=== PATIENT | male | born 1940 | race Caucasian/White ===

== ENCOUNTER 2019-11-04 06:44 | Day surgery (SDC) | payer MEDICARE ==
[2019-11-04] MEDS ORDERED: Lactated Ringers 1,000 ML IV ONE (06:55)
[2019-11-04] MEDS ORDERED: NON-FORMULARY ITEM OP ONE (07:00)
[2019-11-04] MEDS ORDERED: Lactated Ringers 1,000 ML IV SCH (07:00)
[2019-11-04] MEDS ORDERED: TETRACAINE 0.5% STERI-UNIT SOL OP ONE ×2 (07:00)
[2019-11-04] MEDS ORDERED: Ak-Dilate OPHTHALMIC*** 1.065 ML, Cyclogyl 1% OPHTH SOL 5 ML 1.065 ML, GATIFLOXACIN 0.5... OP ONE ×4 (07:00)
[2019-11-04] MEDS ORDERED: Zofran 4 MG/2 ML VIAL IV PRN (09:00)
[2019-11-04] MEDS ORDERED: ACETAZOLAMIDE 250 MG TABLET PO ONE (09:00)
[2019-11-04] MEDS ORDERED: DIPRIVAN 200 MG/20 ML IV ONE (09:58)
[2019-11-04] MEDS ORDERED: LIDOCAINE HCL 1% AMPUL 5 ML IJ ONE (10:00)
[2019-11-04] MEDS ORDERED: BETADINE 5% OPHTHALMIC 30 ML OP ONE (10:00)
[2019-11-04] MEDS ORDERED: BSS 500 ML, Fortaz/Tazicef 1 GM** 0.2 G IO ONE ×2 (10:00)
[2019-11-04] MEDS ORDERED: Epinephrine Preservative Free 1 MG/ML INTRAOP ONE (10:00)
[2019-11-04 11:16] VITALS: BP 172/83; PULSE 68; O2SAT 97
--- NOTE | 2019-11-04 11:53 | OP ---
DATE/TIME OF OPERATION: 11/04/2019 0959 TIME DICTATED: 1130 PREOPERATIVE DIAGNOSIS: Senile cataract of left eye. POSTOPERATIVE DIAGNOSIS: Senile cataract of left eye. SURGEON: Dania Jacobsen MD STOCK TRACER: None. OPERATION: Cataract extraction of left eye with an intraocular lens implant. STANDARD __X__ COMPLEX ____ ANESTHESIA: MAC. ___X__ Monitored anesthesia care in combination with topical and intra-cameral anesthesia (because of the established specific risk of reflux, arrhythmias, or an anxiety attack associated with ocular manipulation as well as difficulty of the rouge mixer to manage such potentially catastrophic events while simultaneously attempting to complete the surgical procedure, it was deemed necessary for the patient's safety to have an anesthesiologist or a nurse dust collector operator present during the procedure whenever possible. The anesthesiologist or the nurse dust collector operator was utilized to monitor and regulate the intravenous sedation of the patient, so the patient was cooperative, relaxed, and comfortable). Topical anesthesia using Tetracaine eye drops together with intra cameral anesthesia using Lidocaine 1% MPF. The nurse was utilized to monitor the patient. ANESTHESIA PROVIDER: Hang Espino CRNA. COMPLICATIONS: None. BLOOD LOSS: None. INDICATIONS: The patient is undergoing cataract surgery in the hopes of eliminating the visual complaints and difficulty. PROCEDURE: After arriving at the facility's outpatient surgery area, an IV was started; the patient was given 5 mg of p.o. Versed. (If an anesthesia provider was not monitoring the patient) The patient was then given topical anesthetic Tetracaine eye drops. A cotton pellet was soaked into a solution of a combination of Zymaxid 0.5%, Andrew-Synephrine 2.5% and Ocufen (other drops might have been substituted referenced in the patient's record). The pellet was inserted by the RN into the lower conjunctival cul-de-sac with a sterile forceps and left for 20 minutes. The pellet was then removed by the RN with a sterile forceps before taking the patient to the operating room. The preoperative area nurse identified the patient and marked the correct eye to be operated on. I identified the correct eye to be operated on and marked it appropriately in the outpatient surgery area. The patient was then taken into the operating room. Tetracaine eye drops were installed again in the correct eye. The eyelids and the lashes and the lid margins were scrubbed with Betadine solution. One drop of the diluted Betadine solution was placed in the conjunctival cul-de-sac for 45 seconds and then was irrigated. A drop of Tetracaine Gel was placed in the conjunctival cul-de-sac. The patient's forehead was taped to secure it during the procedure. The patient was monitored. The patient was then draped in the usual way for this procedure. An eye speculum was used to separate the eyelids. The eye was then fixated and a temporal 2.5 mm incision was made in the clear cornea temporally at the limbus. Through the incision, 0.25 cc of 1% non-preserved lidocaine was injected into the anterior chamber for intracameral anesthesia. The anterior chamber was then filled with viscoelastic. The pupil was small. I felt that it would be safer to mechanically dilate the pupil. A Malyugin ring was used at this point which dilated the pupil. That was removed at the end of the procedure prior to aspiration of the viscoelastic from the anterior chamber and posterior to the intraocular lens implant. The cataract had a great amount of cortical changes. That rendered seeing the anterior capsule difficult for a safe performance of an anterior capsulotomy. I injected an air bubble into the anterior chamber. I then injected 1 ML of vision blue solution into the anterior chamber. The vision blue solution was irrigated from the anterior chamber after 30 seconds. The anterior capsule was stained which facilitated performing the anterior capsulotomy safely. After that was completed, a cystotome was introduced into the anterior chamber and a round anterior capsulotomy was performed. The capsule was removed by a forceps. Hydrodissection was next carried utilizing a 25-gauge cannula and balanced salt solution to delineate the cortical material from the capsule and the nucleus from the cortical material. The nucleus was rotated freely into the capsular bag with no difficulty. The phaco tip of the [employer] Phacoemulsifier was introduced into the anterior chamber and two grooves were made into the nucleus 90 degrees apart. Using two spatulas resulted into the nucleus being fractured into four quadrants. The phaco tip was then used to remove each quadrant of the nucleus. Viscoelastic was used during this process to protect the corneal endothelium. Once the entire nucleus was removed, the phaco tip then was removed and the irrigation tip was introduced into the eye and the cortex was removed. The posterior capsule was polished. It was noticed that there was a tear into the posterior capsule with few vitreous strands into the pupil plan. An anterior vitrectomy was performed. A 20.00 diopter, SN60WF, posterior chamber lens implant, was inspected and found to be grossly normal. The implant was inserted into the implant injector cartridge; Viscoelastic again was introduced into the anterior chamber, which filled the capsular bag. The implant injector's cartridge tip was placed at the limbal wound and the posterior chamber implant was released into the capsular bag and rotated appropriately. The implant was found to be into the capsular bag and it was centered. 0.2 ml of Tri-Moxi was introduced via 27 gauge cannula into the vitreous cavity through the ciliary processes. Viscoelastic was aspirated from the anterior chamber and posterior to the intraocular lens implant from the capsular bag using the irrigating tip. The anterior chamber was irrigated and filled with 5 cc antibiotic solution (500 cc of BSS plus 2 ml of Fortaz 100 mg/ml) ( if patient was not allergic to the medication). The lips of the corneal incision were hydrated using BSS solution. The anterior chamber was checked and found to be water tight. ___X__ One drop each of antibiotic, steroid and NSAID drops (refer to chart for drops used) were placed in the conjunctival cul-de-sac of the operated eye. Patient tolerated the procedure quite well and left the operating room in satisfactory condition. DISCHARGE SUMMARY: The patient was released in stable condition. The patient and those with the patient were given an instruction sheet as of how to care for the eye after surgery as well as counseling on any abnormal laboratory studies by the postoperative RN. The patient was also given an appointment card for follow-up in the office and is to call immediately for any difficulties including but not limited to pain in the eye, decreased vision, discharge from the eye, headache and or fever. DISCHARGE DIAGNOSIS: Pseudophakia of left eye.
== END 2019-11-04 11:20 | disposition home or self-care (01) ==
LOC: SDC 06:44
PROVIDERS: ATTEND Ophthalmology
DX: H25.812 Combined forms of age-related cataract, left eye (principal); E11.9 Type 2 diabetes mellitus without complications; I10 Essential (primary) hypertension; E78.00 Pure hypercholesterolemia, unspecified; M10.9 Gout, unspecified; K21.9 Gastro-esophageal reflux disease without esophagitis; Z79.899 Other long term (current) drug therapy
CPT/HCPCS: 82962; 99100; C1780; J0171; J2704; A9270-GY

== ENCOUNTER 2019-12-09 08:22 | Day surgery (SDC) | payer MEDICARE ==
[~2019-12-09 08:22] MED LIST: Ak-Dilate OPHTHALMIC*** 1.065 ML, Cyclogyl 1% OPHTH SOL 5 ML 1.065 ML, GATIFLOXACIN 0.5... OP ONE; Lactated Ringers 1,000 ML IV SCH; NON-FORMULARY ITEM OP ONE; TETRACAINE 0.5% STERI-UNIT SOL OP ONE
[2019-12-09] MEDS ORDERED: Lactated Ringers 1,000 ML IV ONE (08:27)
[2019-12-09] MEDS ORDERED: Zofran 4 MG/2 ML VIAL IV PRN (09:00)
[2019-12-09] MEDS ORDERED: ACETAZOLAMIDE 250 MG TABLET PO ONE (09:00)
[2019-12-09] MEDS ORDERED: LIDOCAINE HCL 1% AMPUL 5 ML IJ ONE (10:00)
[2019-12-09] MEDS ORDERED: BSS 500 ML, Fortaz/Tazicef 1 GM** 0.2 G IO ONE ×2 (10:00)
[2019-12-09] MEDS ORDERED: Epinephrine Preservative Free 1 MG/ML INTRAOP ONE (10:00)
[2019-12-09] MEDS ORDERED: BETADINE 5% OPHTHALMIC 30 ML OP ONE (10:00)
[2019-12-09] MEDS ORDERED: DIPRIVAN 200 MG/20 ML IV ONE ×2 (11:19→11:25)
[2019-12-09 12:34] VITALS: O2SAT 97
[2019-12-09 13:00] VITALS: BP 168/74; PULSE 61
--- NOTE | 2019-12-09 13:49 | OP ---
DATE/TIME OF OPERATION: 12/09/2019 1119 TIME DICTATED: 1256 PREOPERATIVE DIAGNOSIS: Senile cataract of right eye. POSTOPERATIVE DIAGNOSIS: Senile cataract of right eye. SURGEON: Dania Jacobsen MD MANAGER PMO: None. OPERATION: Cataract extraction of right eye with an intraocular lens implant. STANDARD __X__ COMPLEX ANESTHESIA: MAC. ___X___ Monitored anesthesia care in combination with topical and intra-cameral anesthesia (because of the established specific risk of reflux, arrhythmias, or an anxiety attack associated with ocular manipulation as well as difficulty of the furniture designer to manage such potentially catastrophic events while simultaneously attempting to complete the surgical procedure, it was deemed necessary for the patient's safety to have an anesthesiologist or a nurse jet wiper present during the procedure whenever possible. The anesthesiologist or the nurse jet wiper was utilized to monitor and regulate the intravenous sedation of the patient, so the patient was cooperative, relaxed, and comfortable). Topical anesthesia using Tetracaine eye drops together with intra cameral anesthesia using Lidocaine 1% MPF. The nurse was utilized to monitor the patient. ANESTHESIA PROVIDER: Hang Espino CRNA. COMPLICATIONS: None. BLOOD LOSS: None. INDICATIONS: The patient is undergoing cataract surgery in the hopes of eliminating the visual complaints and difficulty. PROCEDURE: After arriving at the facility's outpatient surgery area, an IV was started; the patient was given 5 mg of p.o. Versed. (If an anesthesia provider was not monitoring the patient) The patient was then given topical anesthetic Tetracaine eye drops. A cotton pellet was soaked into a solution of a combination of Zymaxid 0.5%, Andrew-Synephrine 2.5% and Ocufen (other drops might have been substituted referenced in the patient's record). The pellet was inserted by the RN into the lower conjunctival cul-de-sac with a sterile forceps and left for 20 minutes. The pellet was then removed by the RN with a sterile forceps before taking the patient to the operating room. The preoperative area nurse identified the patient and marked the correct eye to be operated on. I identified the correct eye to be operated on and marked it appropriately in the outpatient surgery area. The patient was then taken into the operating room. Tetracaine eye drops were installed again in the correct eye. The eyelids and the lashes and the lid margins were scrubbed with Betadine solution. One drop of the diluted Betadine solution was placed in the conjunctival cul-de-sac for 45 seconds and then was irrigated. A drop of Tetracaine Gel was placed in the conjunctival cul-de-sac. The patient's forehead was taped to secure it during the procedure. The patient was monitored. The patient was then draped in the usual way for this procedure. An eye speculum was used to separate the eyelids. The eye was then fixated and a temporal 2.5 mm incision was made in the clear cornea temporally at the limbus. Through the incision, 0.25 cc of 1% non-preserved lidocaine was injected into the anterior chamber for intracameral anesthesia. The anterior chamber was then filled with viscoelastic. The pupil was small. I felt that it would be safer to mechanically dilate the pupil. A Malyugin ring was used at this point which dilated the pupil. That was removed at the end of the procedure prior to aspiration of the viscoelastic from the anterior chamber and posterior to the intraocular lens implant. The cataract had a great amount of cortical changes. That rendered seeing the anterior capsule difficult for a safe performance of an anterior capsulotomy. I injected an air bubble into the anterior chamber. I then injected 1 ML of vision blue solution into the anterior chamber. The vision blue solution was irrigated from the anterior chamber after 30 seconds. The anterior capsule was stained which facilitated performing the anterior capsulotomy safely. After that was completed, a cystotome was introduced into the anterior chamber and a round anterior capsulotomy was performed. The capsule was removed by a forceps. Hydrodissection was next carried utilizing a 25-gauge cannula and balanced salt solution to delineate the cortical material from the capsule and the nucleus from the cortical material. The nucleus was rotated freely into the capsular bag with no difficulty. The phaco tip of the [employer] Phacoemulsifier was introduced into the anterior chamber and two grooves were made into the nucleus 90 degrees apart. Using two spatulas resulted into the nucleus being fractured into four quadrants. The phaco tip was then used to remove each quadrant of the nucleus. Viscoelastic was used during this process to protect the corneal endothelium. Once the entire nucleus was removed, the phaco tip then was removed and the irrigation tip was introduced into the eye and the cortex was removed. The posterior capsule was polished. It was noticed that there was a tear into the posterior capsule with few vitreous strands into the pupil plan. An anterior vitrectomy was performed. A 20.00 diopter, SN60WF, posterior chamber lens implant, was inspected and found to be grossly normal. The implant was inserted into the implant injector cartridge; Viscoelastic again was introduced into the anterior chamber, which filled the capsular bag. The implant injector's cartridge tip was placed at the limbal wound and the posterior chamber implant was released into the capsular bag and rotated appropriately. The implant was found to be into the capsular bag and it was centered. 0.2 ml of Tri-Moxi was introduced via 27 gauge cannula into the vitreous cavity through the ciliary processes. Viscoelastic was aspirated from the anterior chamber and posterior to the intraocular lens implant from the capsular bag using the irrigating tip. The anterior chamber was irrigated and filled with 5 cc antibiotic solution (500 cc of BSS plus 2 ml of Fortaz 100 mg/ml) ( if patient was not allergic to the medication). The lips of the corneal incision were hydrated using BSS solution. The anterior chamber was checked and found to be water tight. ___X___ One drop each of antibiotic, steroid and NSAID drops (refer to chart for drops used) were placed in the conjunctival cul-de-sac of the operated eye. Patient tolerated the procedure quite well and left the operating room in satisfactory condition. DISCHARGE SUMMARY: The patient was released in stable condition. The patient and those with the patient were given an instruction sheet as of how to care for the eye after surgery as well as counseling on any abnormal laboratory studies by the postoperative RN. The patient was also given an appointment card for follow-up in the office and is to call immediately for any difficulties including but not limited to pain in the eye, decreased vision, discharge from the eye, headache and or fever. DISCHARGE DIAGNOSIS: Pseudophakia of right eye.
== END 2019-12-09 12:55 | disposition home or self-care (01) ==
LOC: SDC 08:22
PROVIDERS: ATTEND Ophthalmology
DX: H25.9 Unspecified age-related cataract (principal); I10 Essential (primary) hypertension; E78.00 Pure hypercholesterolemia, unspecified; M10.9 Gout, unspecified; K21.9 Gastro-esophageal reflux disease without esophagitis; Z79.899 Other long term (current) drug therapy
CPT/HCPCS: 82962; 99100; C1780; J0171; J2704; A9270-GY

== ENCOUNTER 2024-11-22 14:13 | Emergency (ER) | payer MEDICARE ==
--- NOTE | 2024-11-22 14:25 | ERPHSYRPT ---
- History of Present Illness Time Seen by Provider: 11/22/24 14:20 Source: patient, EMS Exam Limitations: clinical condition Physician History: Pt awakened at 0930 this am with aphasia which then improved ( per this was actually between 1130 and noon today) and although oriented now, he has trouble answering questions which is not his baseline. No blood thinners. No hx of trauma. No pronator drift. 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 No HEadache, chest pain, sobreath or abd pain or dizziness. No bruits. Fundi benign. PERRL f-N coordination unable to be acurate. Discussed with pt and available family risks and benefits of testing/Tx including CBC, CMP, EKG, Trop, BNP, UA, CT head/ CTA head and neck , swabs for Covid, RSV, Flu and Strep, and they wish to proceed so these are ordered. Results discussed with pt and available family. Timing/Duration: today Severity: moderate Character of Deficits: impaired speech Deficits: off balance Baseline/Normal Cognition: alert oriented x 3 Current Cognition: alert but confused Associated Symptoms: confusion, other (slow cognition) Allergies/Adverse Reactions: No Known Drug Allergies Allergy (Verified 11/22/24 14:50) Home Medications: Allopurinol 300 mg [Zyloprim 300 mg] 300 mg PO DAILY 10/30/19 [History] Amlodipine Besylate [Norvasc] 20 mg PO DAILY 10/30/19 [History] Eplerenone 25 mg PO DAILY 10/30/19 [History] Magnesium Oxide 400 mg [Mag-Ox 400] 400 mg TID 10/30/19 [History] Omeprazole 20 mg PO DAILY 10/30/19 [History] Pravastatin Sodium [Pravachol] 40 mg PO DAILY 10/30/19 [History] Cholecalciferol (Vitamin D3) [Vitamin D3] 2,000 unit PO DAILY 11/04/19 [History] Finasteride 5 mg [Proscar 5 MG] 5 mg PO DAILY 11/22/24 [History] Metformin HCl 500 mg [Glucophage 500 MG] 500 mg PO BIDWM 11/22/24 [H istory] Metoprolol Succinate 50 mg PO DAILY 11/22/24 [History] Tamsulosin HCl 0.4 mg [Flomax 0.4 MG] 0.4 mg PO DAILY 11/22/24 [History] - Review of Systems Constitutional: No Fever, No Chills Eyes: No Symptoms Ears, Nose, & Throat: No Symptoms Respiratory: No Cough, No Dyspnea Cardiac: No Chest Pain, No Edema, No Syncope Abdominal/Gastrointestinal: No Abdominal Pain, No Nausea, No Vomiting, No Diarrhea Genitourinary Symptoms: No Dysuria Musculoskeletal: No Back Pain, No Neck Pain Skin: No Rash Neurological: Speech Changes, No Dizziness, No Focal Weakness, No Sensory Changes Psychological: No Symptoms Endocrine: No Symptoms Hematologic/Lymphatic: No Symptoms Immunological/Allergic: No Symptoms All Other Systems: Reviewed and Negative - Past Medical History Pertinent Past Medical History: Yes Neurological History: No Pertinent History ENT History: Cataracts Cardiac History: High Cholesterol, Hypertension Respiratory History: No Pertinent History Endocrine Medical History: Diabetes Type II Musculoskeletal History: Osteoarthritis GI Medical History: GERD History: No Pertinent History Psycho-Social History: No Pertinent History Male Reproductive Disorders: No Pertinent History Other Medical History: PSH: R RTC REPAIR, CATARACT SURGERY, R LUCIA, APPENDECTOMY, BLADDER CANCER (CHEMO AND RADIATION) - Past Surgical History Past Surgical History: Yes Neuro Surgical History: No Pertinent History Cardiac: No Pertinent History Respiratory: No Pertinent History Gastrointestinal: Appendectomy Genitourinary: No Pertinent History Musculoskeletal: Orthopedic Surgery Male Surgical History: No Pertinent History Other Surgical History: Right rotator cuff repair - Social History Smoking Status: Former smoker Exposure to second hand smoke: No Drug Use: none - Nursing Vital Signs Nursing Vital Signs: Initial Vital Signs Pulse Rate 77 11/22/24 14:18 Respiratory Rate 18 11/22/24 14:18 Blood Pressure 165/73 11/22/24 14:18 O2 Sat by Pulse Oximetry 98 11/22/24 14:18 Pain Scale Pain Intensity 0 - Juliette Coma Scale Best Eye Response (Juliette): (4) open spontaneously Best Verbal Response (Juliette): (5) oriented Best Motor Response (Juliette): (6) obeys commands Juliette Total: 15 - Physical Exam General Appearance: no apparent distress, alert Eye Exam: bilateral eye: PERRL, EOMI Ears, Nose, Throat Exam: normal ENT inspection, moist mucous membranes Neck Exam: normal inspection, non-tender, supple Respiratory: normal breath sounds, lungs clear, airway intact, No respiratory distress Cardiovascular: regular rate/rhythm, No edema Gastrointestinal: soft, No tenderness, No distention Rectal Exam: deferred Back Exam: normal inspection Extremity Exam: normal inspection, No pedal edema Peripheral Pulses: carotid (R): 2+, carotid (L): 2+, femoral (R): 2+, femoral (L): 2+, dorsalis-pedis (R): 2+, dorsalis-pedis (L): 2+ Mental Status: alert, oriented x 3, 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: tongue midline Coordination/Gait: normal finger to nose, normal gait Motor/Sensory: no motor deficit, no sensory deficit, no pronator drift DTR: bicep (R): 2+, bicep (L): 2+, tricep (R): 2+, tricep (L): 2+, knee (R): 2+, knee (L): 2+, ankle (R): 2+, ankle (L): 2+ Skin Exam: normal color, warm, dry, No rash SpO2 Interpretation: normal SpO2: 97 O2 Delivery: Room Air - Course Nursing assessment & vital signs reviewed: Yes EKG Interpreted by Me: Sinus Rhythm, NORMAL AXIS, NORMAL QRS, Non-specific ST Changes, Other (short IL) - CT Exams Head CT Interpretation: Tele-radiologist Report, No/Intracranial Hemorrhag (verbal negative for large CVA/ Hemorrhage.) Ordered Tests: Active Orders 24 hr Category Date Time Status Route Service Manager STAT Care 11/22/24 14:32 Active EKG-ER Only STAT Care 11/22/24 14:30 Active IV Insertion STAT Care 11/22/24 14:30 Active NPO (ED) STAT Care 11/22/24 14:30 Active Pulse Oximetry (ED) STAT Care 11/22/24 14:30 Active Tele-Health Consult ROUTINE Cons 11/22/24 14:38 Active HEAD WITHOUT CONTRAST [CT] Stat Exams 11/22/24 14:31 Completed CBC W DIFF Stat Lab 11/22/24 14:59 Completed CMP Stat Lab 11/22/24 14:59 Completed Lactic Acid Stat Lab 11/22/24 14:30 Completed TROPONIN Q4H Lab 11/22/24 14:59 Completed TROPONIN Q4H Lab 11/22/24 18:30 Ordered TROPONIN Q4H Lab 11/22/24 22:30 Ordered TSH [TSH, 3RD Generation] Stat Lab 11/22/24 14:59 Completed UA W/RFX UR CULTURE Stat Lab 11/22/24 15:31 Completed Medication Summary Discontinued Medications Generic Name Dose Route Start Last Admin Trade Name Wojciech PRN Reason Stop Dose Admin Aspirin 324 mg 11/22/24 17:03 Aspirin 81 Mg Tab.Chew PO 11/22/24 17:04 STAT ONE Clopidogrel Bisulfate 300 mg 11/22/24 17:03 Clopidogrel Bisulfate 75 Mg Tablet PO 11/22/24 17:04 STAT ONE Lab/Rad Data: Laboratory Result Diagrams 11/22/24 14:59 11/22/24 14:59 Laboratory Results 11/22/24 11/22/24 11/22/24 Range/Units 15:31 14:59 14:59 WBC (4.23-9.07) x10^3/uL RBC (4.63-6.08) x10^6/uL Hgb (13.7-17.5) g/dL Hct (40.1-51.0) % MCV (79.0-92.2) fL MCH (25.7-32.2) pg MCHC (32.3-36.5) g/dL RDW (11.6-14.4) % Plt Count (163-337) x10^3/uL MPV (9.4-12.4) fL Gran % (34.0-67.9) % Immature Gran % (Auto) (0.001-0.429) % Nucleat RBC Rel Count (0.00-0.2) % Eos # (Auto) (0.04-0.54) x10^3/uL Immature Gran # (Auto) (0.001-0.031) x10^3u/L Absolute Lymphs (auto) (1.32-3.57) x10^3/uL Absolute Monos (auto) (0.30-0.82) x10^3/uL Absolute Nucleated RBC (0.00-0.012) x10^3u/L Lymphocytes % (21.8-53.1) % Monocytes % (5.3-12.2) % Eosinophils % (0.8-7.0) % Basophils % (0.2-1.2) % Absolute Granulocytes (1.78-5.38) x10^3/uL Basophils # (0.01-0.08) x10^3/uL Sodium (135-145) mmol/L Potassium (3.5-5.1) mmol/L Chloride (98-107) mmol/L Carbon Dioxide (22-30) mmol/L Anion Gap (5-15) MEQ/L BUN (9-20) mg/dL Creatinine (0.66-1.25) mg/dL Estimated GFR ML/MIN Glucose (74-106) mg/dL Lactic Acid (0.4-2.0) Calcium (8.4-10.2) mg/dL Total Bilirubin (0.2-1.3) mg/dL AST (17-59) U/L ALT (0-50) U/L Alkaline Phosphatase (38-126) U/L Troponin I (0.000-0.033) ng/mL Serum Total Protein (6.3-8.2) g/dL Albumin (3.5-5.0) g/dL TSH 3rd Generation 1.795 (0.470-4.680) mIU/L Urine Color Yellow (Yellow) Urine Appearance Clear (Clear) Urine pH 5.5 (4.6-8.0) Ur Specific Hemphill 1.020 (1.005-1.030) Urine Protein >=1000 A (Negative) Urine Glucose (UA) Negative (Negative) mg/dL Urine Ketones Trace A (Negative) Urine Blood Trace (Negative) Urine Nitrite Negative (Negative) Urine Bilirubin Negative (Negative) Urine Urobilinogen 0.2 (0.2) mg/dL Ur Leukocyte Esterase Negative (Negative) Urine Microscopic RBC 0-2 (0-5) /HPF Urine Microscopic WBC 0-2 (0-5) /HPF Ur Epithelial Cells None Seen (None Seen) /HPF Urine Bacteria None Seen (None Seen) /HPF Urine Culture Reflexed NO (NO) Influenza Type A Ag NEGATIVE (NEGATIVE) Influenza Type B Ag NEGATIVE (NEGATIVE) RSV (PCR) NEGATIVE (NEGATIVE) SARS-CoV-2 (PCR) NEGATIVE (NEGATIVE) 11/22/24 11/22/24 11/22/24 Range/Units 14:59 14:59 14:30 WBC 11.3 H (4.23-9.07) x10^3/uL RBC 3.07 L (4.63-6.08) x10^6/uL Hgb 9.3 L (13.7-17.5) g/dL Hct 27.9 L (40.1-51.0) % MCV 90.9 (79.0-92.2) fL MCH 30.3 (25.7-32.2) pg MCHC 33.3 (32.3-36.5) g/dL RDW 15.9 H (11.6-14.4) % Plt Count 300 (163-337) x10^3/uL MPV 9.7 (9.4-12.4) fL Gran % 78.5 H (34.0-67.9) % Immature Gran % (Auto) 0.7 H (0.001-0.429) % Nucleat RBC Rel Count 0.0 (0.00-0.2) % Eos # (Auto) 0.25 (0.04-0.54) x10^3/uL Immature Gran # (Auto) 0.08 H (0.001-0.031) x10^3u/L Absolute Lymphs (auto) 1.09 L (1.32-3.57) x10^3/uL Absolute Monos (auto) 0.94 H (0.30-0.82) x10^3/uL Absolute Nucleated RBC 0.00 (0.00-0.012) x10^3u/L Lymphocytes % 9.7 L (21.8-53.1) % Monocytes % 8.3 (5.3-12.2) % Eosinophils % 2.2 (0.8-7.0) % Basophils % 0.6 (0.2-1.2) % Absolute Granulocytes 8.84 H (1.78-5.38) x10^3/uL Basophils # 0.07 (0.01-0.08) x10^3/uL Sodium 137 (135-145) mmol/L Potassium 4.7 (3.5-5.1) mmol/L Chloride 107 (98-107) mmol/L Carbon Dioxide 21 L (22-30) mmol/L Anion Gap 13.7 (5-15) MEQ/L BUN 39 H (9-20) mg/dL Creatinine 1.97 H (0.66-1.25) mg/dL Estimated GFR 33.1 ML/MIN Glucose 160 H (74-106) mg/dL Lactic Acid 1.4 (0.4-2.0) Calcium 8.5 (8.4-10.2) mg/dL Total Bilirubin 0.20 (0.2-1.3) mg/dL AST 25 (17-59) U/L ALT 19 (0-50) U/L Alkaline Phosphatase 70 (38-126) U/L Troponin I < 0.012 (0.000-0.033) ng/mL Serum Total Protein 6.4 (6.3-8.2) g/dL Albumin 3.8 (3.5-5.0) g/dL TSH 3rd Generation (0.470-4.680) mIU/L Urine Color (Yellow) Urine Appearance (Clear) Urine pH (4.6-8.0) Ur Specific Hemphill (1.005-1.030) Urine Protein (Negative) Urine Glucose (UA) (Negative) mg/dL Urine Ketones (Negative) Urine Blood (Negative) Urine Nitrite (Negative) Urine Bilirubin (Negative) Urine Urobilinogen (0.2) mg/dL Ur Leukocyte Esterase (Negative) Urine Microscopic RBC (0-5) /HPF Urine Microscopic WBC (0-5) /HPF Ur Epithelial Cells (None Seen) /HPF Urine Bacteria (None Seen) /HPF Urine Culture Reflexed (NO) Influenza Type A Ag (NEGATIVE) Influenza Type B Ag (NEGATIVE) RSV (PCR) (NEGATIVE) SARS-CoV-2 (PCR) (NEGATIVE) - Progress Progress: improved, re-examined Progress Note: 11/22/24 17:02 Consulted hospitalist and neuro at [facility] and they accepted but waiting to talk to hospitalist there. Meantime they request we give ASA 324 and Plavix 300 mg 11/22/24 17:04 11/22/24 17:[address] Espinoza at [facility] and they accepted in transfer and we are awaiting transport and bed. 11/22/24 17:25 Prior consult teleneuro documented here and they agreed probably CVA but outside reperfusion window and that transfer to stroke facility with MRI and other capabilities is advised. Will see patient in: hospital (observation), other (Dr. Espinoza) Counseled pt/family regarding: lab results, diagnosis, need for follow-up, rad results Medical Desision Making - Independent Historian Additional History obtained from: Family, EMS - Discussion of managment Care discussed with:: specialist Reviewed:: Test results, Need for additional workup Agreed on:: Treatment plan, need for follow-up, decision to admit, place in obs Will see patient: in hospital - Diagnostic Testing Diagnostic test were ordered, analyzed, and reviewed by me: Yes Radiological Interpretation: Teleradiologist Report - Risk of complications The pt has a mod risk of morbidity or mortality based on: Need for prescription drug management The pt has a high risk of morbidity or mortality based on: Decision regarding hospitilization or escalation of hosp level of care - Departure Departure Disposition: Transfer Clinical Impression: CVA (cerebral vascular accident) Condition: Good Critical Care Time: No Referrals: WERNER MONTIEL [Primary Care Provider] - Follow up/PCP as directed
[2024-11-22 15:00] LABS: Absolute Neutrophil Ct (ANC) 8.84 x10^3/uL (1.78-5.38); BASOPHIL % 0.6 % (0.2-1.2); Basophil (Absolute #) 0.07 x10^3/uL (0.01-0.08); Eosinophil % 2.2 % (0.8-7.0); Eosinophil (Absolute #) 0.25 x10^3/uL (0.04-0.54); Hematocrit 27.9 % (40.1-51.0); Hemoglobin 9.3 g/dL (13.7-17.5); IMMATURE GRAN # 0.08 x10^3u/L (0.001-0.031); IMMATURE GRAN % 0.7 % (0.001-0.429); Lymphocyte (Absolute #) 1.09 x10^3/uL (1.32-3.57); Lymphocytes % 9.7 % (21.8-53.1); Mean Cell Volume 90.9 fL (79.0-92.2); Mean Corpuscular Hemoglobin 30.3 pg (25.7-32.2); Mean Corpuscular Hgb Concent. 33.3 g/dL (32.3-36.5); Mean Platelet Volume 9.7 fL (9.4-12.4); Monocyte (Absolute #) 0.94 x10^3/uL (0.30-0.82); Monocytes % 8.3 % (5.3-12.2); Neutrophil % 78.5 % (34.0-67.9); Platelet Count 300 x10^3/uL (163-337); Red Blood Count 3.07 x10^6/uL (4.63-6.08); Red Cell Distribution Width 15.9 % (11.6-14.4); White Blood Count 11.3 x10^3/uL (4.23-9.07)
--- NOTE | 2024-11-22 15:08 | XRAY ---
CLINICAL HISTORY: altered mental status aphasia COMPARISON: None. TECHNIQUE: An axial non-contrast CT scan of the brain was performed from the skull base to the high parietal region. One of the following dose-reduction techniques was utilized for this exam. Automated exposure control, adjustment of the mA and/or kV according to patient size, and use of iterative reconstruction. FINDINGS: Brain Parenchyma: There are multiple tiny ill-defined hypodense foci and small areas noted in the subcortical and periventricular white matter bilaterally associated with bilateral periventricular patchy symmetrical hypodense areas capping both ventricles, suggestive of microvascular ischemic changes. Normal attenuation of the cerebellum, and brainstem. No evidence of acute infarct, hemorrhage, or mass effect. No abnormal areas of hyperattenuation. Ventricular System and Subarachnoid Spaces:: The ventricular system, cortical sulci, cerebellar folia, and basal cisterns are prominent and consistent with senile changes. No evidence of hydrocephalus. No evidence of subarachnoid hemorrhage or extra-axial fluid collections. Cerebellum and Brainstem: Normal size and signal. No masses, lesions, or areas of abnormal signal. Orbits: Normal appearance of the globes, optic nerves, and extraocular muscles. No evidence of orbital masses or abnormal density. Sinuses: Clear paranasal sinuses. No evidence of sinusitis or mucosal thickening. Mastoid Air Cells: Clear mastoid air cells. No evidence of mastoiditis. Skull and Meninges: Normal skull morphology. No evidence of meningeal thickening. IMPRESSION: 1. No acute intracranial hemorrhage or established territorial infarct. 2. Chronic microvascular ischemic changes. 3. Age-related brain involutional changes. 4. Early changes of a stroke may not be detected on a CT scan. If there is strong clinical suspicion of stroke, further MRI with diffusion-weighted imaging is recommended. [facility] was called at at 02:03 PM [employer]CH[employer] SPECIALIST, 11/22/2024, and ANTONINA Jones was informed regarding the negative stroke results. Electronically Signed by: Sowmya Ryder MD. (11/22/2024 15:05:01 EST)
[2024-11-22 15:10] VITALS: O2SAT 97
[2024-11-22 15:29] LABS: ALBUMIN 3.8 g/dL (3.5-5.0); ALKALINE PHOSPHATASE 70 U/L (38-126); ANION GAP 13.7 MEQ/L (5-15); BLOOD UREA NITROGEN 39 mg/dL (9-20); CHLORIDE 107 mmol/L (98-107); Calcium 8.5 mg/dL (8.4-10.2); Carbon Dioxide 21 mmol/L (22-30); Creatinine 1 1.97 mg/dL (0.66-1.25); EST GLOMERULAR FILTRATION RATE 33.1 ML/MIN; Glucose 160 mg/dL (74-106); Potassium 4.7 mmol/L (3.5-5.1); SGOT/AST 25 U/L (17-59); SGPT/ALT 19 U/L (0-50); SODIUM 137 mmol/L (135-145); TROPONIN < 0.012 ng/mL (0.000-0.033); Total Protein 6.4 g/dL (6.3-8.2)
[2024-11-22 15:36] LABS: INFLUENZA A NEGATIVE (NEGATIVE); INFLUENZA B NEGATIVE (NEGATIVE); RESPIRATORY SYNCTIAL VIRUS NEGATIVE (NEGATIVE); SARS-CoV-2 Xpert Express NEGATIVE (NEGATIVE)
[2024-11-22 15:55] LABS: Appearance Clear (Clear); Bacteria None Seen /HPF (None Seen); Bilirubin Negative (Negative); Blood Trace (Negative); Epithelial Cells None Seen /HPF (None Seen); Glucose, Urine Negative (Negative); Ketones Trace (Negative); Leukocyte Esterase Negative (Negative); Nitrite Negative (Negative); Ph 5.5 (4.6-8.0); Protein,Urine Dip >=1000 (Negative); RBC 0-2 /HPF (0-5); Urobilinogen 0.2 mg/dL (0.2); WBC 0-2 /HPF (0-5)
[2024-11-22] MEDS ORDERED: PLAVIX Tablet ONE ×2 (17:30→17:31)
[2024-11-22] MEDS ORDERED: BABY ASPIRIN 81 MG CHEW ONE (17:30)
[2024-11-22] MEDS: PLAVIX Tablet PO ONE (17:31)
[2024-11-22] MEDS: BABY ASPIRIN 81 MG CHEW PO ONE (17:31)
[2024-11-22 18:45] VITALS: TEMP 99
[2024-11-22 20:17] VITALS: BP 186/83; PULSE 67; RESP 11
== END 2024-11-22 20:25 | disposition short-term general hospital (02) ==
LOC: ED 14:13
DX: I63.9 Cerebral infarction, unspecified (principal); R47.01 Aphasia; E78.5 Hyperlipidemia, unspecified; I10 Essential (primary) hypertension; E11.9 Type 2 diabetes mellitus without complications; Z79.84 Long term (current) use of oral hypoglycemic drugs; Z79.899 Other long term (current) drug therapy
CPT/HCPCS: 0241U; 36415; 70450; 80053; 81001; 83605; 84443; 84484; 85025; 93005; 93041; 94760; 99285; Q3014; A9270-GY